=== PATIENT | male | born 1960 | race Caucasian/White ===

== ENCOUNTER 2016-05-23 13:44 | Emergency (ER) | payer SELFPAY | END 2016-05-23 15:42 | disposition home or self-care (01) | LOC: D.ER 13:44 | DX: H81.10 Benign paroxysmal vertigo, unspecified ear (principal); R11.10 Vomiting, unspecified; R53.1 Weakness; E86.0 Dehydration; F17.200 Nicotine dependence, unspecified, uncomplicated; K21.9 Gastro-esophageal reflux disease without esophagitis ==

== ENCOUNTER 2016-11-09 03:06 | Emergency (ER) | payer MEDICAID ==
[2016-11-09 04:09] LABS: BASOPHILS 0.2 % (0-2); HEMATOCRIT 42.4 % (42.0-54.0); HEMOGLOBIN 14.4 g/dL (13.5-17.5); IMMATURE GRANULOCYTES 0.2 % (0-5); LYMPHOCYTES 30.3 % (15-50); MCH 33.7 pg (26.0-34.0); MCV 99.3 fL (80.0-100.0); MEAN PLATELET VOLUME 8.9 fL (7.4-10.4); MONOCYTES 7.8 % (2-11); NEUTROPHILS 59.5 % (40-80); PLATELET COUNT 185 10x3/uL (130-400); RBC 4.27 10x6/uL (4.20-6.10); RDW 13.7 % (11.5-14.5); WBC 6.6 10x3/uL (4.8-10.8)
[2016-11-09 04:23] LABS: ALBUMIN 3.2 g/dL (3.4-5.0); ALKALINE PHOSPHATASE 53 U/L (46-116); ALT (SGPT) 17 U/L (10-68); CALC OSMOLALITY 285 mosm/kg (275-300); CALCIUM 8.4 mg/dL (8.5-10.1); CARBON DIOXIDE 27.1 mmol/L (21.0-32.0); CHLORIDE - SERUM 109 mmol/L (98-107); GLUCOSE 105 mg/dL (74-106); PROTEIN - SERUM 6.6 g/dL (6.4-8.2); SODIUM 142 mmol/L (136-145); UREA NITROGEN 20 mg/dL (7-18); eGFR NON AFRICAN AMERICAN 82 mL/min (90-120)
[2016-11-09 04:25] LABS: AMYLASE - SERUM 46 U/L (25-115); LIPASE 135 U/L (73-393); TROPONIN-I < 0.017 ng/mL (0.000-0.060)
== END 2016-11-09 06:04 | disposition home or self-care (01) ==
LOC: D.ER 03:06
PROVIDERS: Family Medicine
DX: R42 Dizziness and giddiness (principal); K21.9 Gastro-esophageal reflux disease without esophagitis; I45.10 Unspecified right bundle-branch block

== ENCOUNTER 2016-12-16 10:08 | Emergency (ER) | payer MEDICAID | END 2016-12-16 11:05 | disposition home or self-care (01) | LOC: D.ER 10:08 | DX: M79.1 Myalgia (principal); W19.XXXA Unspecified fall, initial encounter; Y93.89 Activity, other specified; Y92.029 Unspecified place in mobile home as the place of occurrence of the external cause; K21.9 Gastro-esophageal reflux disease without esophagitis ==

== ENCOUNTER 2018-09-11 02:38 | Emergency (ER) | payer MEDICAID ==
[~2018-09-11] VITALS: Ht 193 cm; Wt 87.3 kg
[2018-09-11 02:41] VITALS: Ht 193 cm; Wt 87.3 kg
[2018-09-11 02:54] LABS: BASOPHILS 0.3 % (0-2); EOSINOPHILS 2.8 % (0-7); HEMATOCRIT 44.2 % (42.0-54.0); HEMOGLOBIN 15.5 g/dL (13.5-17.5); IMMATURE GRANULOCYTES 0.1 % (0-5); LYMPHOCYTES 31.3 % (15-50); MCH 34.4 pg (26.0-34.0); MCHC 35.1 g/dL (31.0-37.0); MCV 98.2 fL (80.0-100.0); MEAN PLATELET VOLUME 8.8 fL (7.4-10.4); MONOCYTES 7.9 % (2-11); NEUTROPHILS 57.6 % (40-80); PLATELET COUNT 166 10x3/uL (130-400); RDW 13.6 % (11.5-14.5); WBC 7.2 10x3/uL (4.8-10.8)
[2018-09-11 03:03] LABS: APTT 28.8 SECONDS (22.8-39.4); INR 1.05 (0.85-1.17); PROTIME 13.2 SECONDS (11.6-15.0)
[2018-09-11 03:07] LABS: ALBUMIN 3.7 g/dL (3.4-5.0); ALKALINE PHOSPHATASE 55 U/L (46-116); ALT (SGPT) 17 U/L (10-68); BILIRUBIN - TOTAL 0.36 mg/dL (0.2-1.3); CALC OSMOLALITY 280 mosm/kg (275-300); CALCIUM 8.5 mg/dL (8.5-10.1); CHLORIDE - SERUM 104 mmol/L (98-107); CREATININE - SERUM 1.1 mg/dL (0.6-1.3); GLUCOSE 94 mg/dL (74-106); PROTEIN - SERUM 7.1 g/dL (6.4-8.2); SODIUM 139 mmol/L (136-145); UREA NITROGEN 22 mg/dL (7-18); eGFR NON AFRICAN AMERICAN 73 mL/min (90-120)
[2018-09-11 03:18] LABS: CKMB 0.9 U/L (0.0-3.6); CREATINE KINASE 85 UL (21-232); PRO BNP 26 pg/mL (0-125)
[2018-09-11 03:20] LABS: TROPONIN-I < 0.017 ng/mL (0.000-0.060)
[2018-09-11 04:44] VITALS: BP 132/75
== END 2018-09-11 04:44 | disposition home or self-care (01) ==
LOC: D.ER 02:38
PROVIDERS: Family Medicine
DX: E83.51 Hypocalcemia (principal); M79.605 Pain in left leg; M79.604 Pain in right leg

== ENCOUNTER 2018-12-29 07:08 | Emergency (ER) | payer SELFPAY ==
[~2018-12-29] VITALS: Ht 193 cm; Wt 84.5 kg
[2018-12-29 07:15] VITALS: Ht 193 cm; Wt 84.5 kg
[2018-12-29] MEDS ORDERED: VITAMIN E100 UNIT PO (07:20)
[2018-12-29] MEDS ORDERED: BAYER ASPIRIN325 MG PO (07:20)
[2018-12-29] MEDS ORDERED: MULTI-DAY VITAM1 TAB PO (07:20)
[2018-12-29] MEDS ORDERED: ASCORBIC ACID500 MG PO (07:20)
[2018-12-29] MEDS ORDERED: GUAIFEN-CODEINE10 ML PO (08:01)
[2018-12-29] MEDS ORDERED: FLUTICASONE PRO16 GM NASAL (08:01)
[2018-12-29] MEDS ORDERED: AUGMENTIN 875-11 TAB PO (08:01)
[2018-12-29 08:08] VITALS: BP 120/75
== END 2018-12-29 08:10 | disposition home or self-care (01) ==
LOC: D.ER 07:08
DX: J01.90 Acute sinusitis, unspecified (principal); R05 Cough; R50.9 Fever, unspecified; Z72.0 Tobacco use

== ENCOUNTER 2019-02-11 18:12 | Emergency (ER) | payer SELFPAY ==
[~2019-02-11] VITALS: Ht 193 cm; Wt 83.2 kg
[~2019-02-11 18:12] MED LIST: ASCORBIC ACID500 MG PO; AUGMENTIN 875-11 TAB PO; BAYER ASPIRIN325 MG PO; FLUTICASONE PRO16 GM NASAL; GUAIFEN-CODEINE10 ML PO; MULTI-DAY VITAM1 TAB PO; VITAMIN E100 UNIT PO
[2019-02-11 18:21] VITALS: Ht 193 cm; Wt 83.2 kg
[2019-02-11] MEDS ORDERED: CLEOCIN HCL300 MG PO (19:18)
[2019-02-11] MEDS ORDERED: KEFLEX500 MG PO (19:18)
[2019-02-11 19:38] VITALS: BP 136/84
== END 2019-02-11 19:38 | disposition home or self-care (01) ==
LOC: D.ER 18:12
DX: L02.11 Cutaneous abscess of neck (principal)

== ENCOUNTER 2019-07-24 19:37 | Emergency (ER) | payer SELFPAY ==
[~2019-07-24] VITALS: Ht 193 cm; Wt 85.0 kg
[~2019-07-24 19:37] MED LIST changes: +CLEOCIN HCL300 MG PO; +KEFLEX500 MG PO
[2019-07-24 19:43] VITALS: Ht 193 cm; Wt 85.0 kg
[2019-07-24] MEDS ORDERED: ZOFRAN ODT4 MG/UDTAB PO (19:49)
[2019-07-24 20:23] LABS: BASOPHILS 0.3 % (0-2); HEMATOCRIT 43.7 % (42.0-54.0); HEMOGLOBIN 15.1 g/dL (13.5-17.5); IMMATURE GRANULOCYTES 0.2 % (0-5); LYMPHOCYTES 32.4 % (15-50); MCH 34.1 pg (26.0-34.0); MCHC 34.6 g/dL (31.0-37.0); MCV 98.6 fL (80.0-100.0); MEAN PLATELET VOLUME 8.4 fL (7.4-10.4); MONOCYTES 7.7 % (2-11); NEUTROPHILS 57.4 % (40-80); PLATELET COUNT 191 10x3/uL (130-400); RBC 4.43 10x6/uL (4.20-6.10); RDW 13.6 % (11.5-14.5); WBC 6.6 10x3/uL (4.8-10.8)
[2019-07-24 20:31] LABS: CALC OSMOLALITY 281 mosm/kg (275-300); CARBON DIOXIDE 24.5 mmol/L (21.0-32.0); CHLORIDE - SERUM 105 mmol/L (98-107); CREATININE - SERUM 1.2 mg/dL (0.6-1.3); GLUCOSE 113 mg/dL (74-106); POTASSIUM - SERUM 3.8 mmol/L (3.5-5.1); SODIUM 139 mmol/L (136-145); UREA NITROGEN 22 mg/dL (7-18); eGFR NON AFRICAN AMERICAN 66 mL/min (90-120)
[2019-07-24 20:40] LABS: ALBUMIN 3.5 g/dL (3.4-5.0); ALKALINE PHOSPHATASE 58 U/L (30-120); ALT (SGPT) 23 U/L (10-68); LIPASE 120 U/L (73-393); PROTEIN - SERUM 7.1 g/dL (6.4-8.2)
[2019-07-24 20:41] LABS: TROPONIN-I < 0.017 ng/mL (0.000-0.060)
[2019-07-24 21:53] VITALS: BP 116/74
== END 2019-07-24 21:56 | disposition home or self-care (01) ==
LOC: D.ER 19:37
PROVIDERS: Family Medicine
DX: R11.2 Nausea with vomiting, unspecified (principal)

== ENCOUNTER 2019-10-03 05:06 | Emergency (ER) | payer SELFPAY ==
[~2019-10-03] VITALS: Ht 193 cm; Wt 81.8 kg
[~2019-10-03 05:06] MED LIST changes: +ZOFRAN ODT4 MG/UDTAB PO
[2019-10-03 05:10] VITALS: Ht 193 cm; Wt 81.8 kg
[2019-10-03 05:48] LABS: BASOPHILS 0.2 % (0-2); EOSINOPHILS 2.3 % (0-7); HEMATOCRIT 43.2 % (42.0-54.0); HEMOGLOBIN 14.8 g/dL (13.5-17.5); IMMATURE GRANULOCYTES 0.2 % (0-5); LYMPHOCYTES 34.2 % (15-50); MCHC 34.3 g/dL (31.0-37.0); MCV 99.3 fL (80.0-100.0); MEAN PLATELET VOLUME 8.3 fL (7.4-10.4); MONOCYTES 8.8 % (2-11); NEUTROPHILS 54.3 % (40-80); PLATELET COUNT 158 10x3/uL (130-400); RBC 4.35 10x6/uL (4.20-6.10); RDW 13.5 % (11.5-14.5); WBC 5.7 10x3/uL (4.8-10.8)
[2019-10-03 06:17] LABS: CALC OSMOLALITY 278 mosm/kg (275-300); CALCIUM 8.1 mg/dL (8.5-10.1); CARBON DIOXIDE 27.6 mmol/L (21.0-32.0); CHLORIDE - SERUM 104 mmol/L (98-107); GLUCOSE 92 mg/dL (74-106); POTASSIUM - SERUM 3.8 mmol/L (3.5-5.1); SODIUM 139 mmol/L (136-145); UREA NITROGEN 15 mg/dL (7-18); eGFR NON AFRICAN AMERICAN 81 mL/min (90-120)
[2019-10-03 06:30] LABS: ALBUMIN 3.4 g/dL (3.4-5.0); ALKALINE PHOSPHATASE 48 U/L (30-120); ALT (SGPT) 20 U/L (10-68); BILIRUBIN - TOTAL 0.41 mg/dL (0.2-1.3); C-REACTIVE PROTEIN 0.5 mg/dL (0.0-0.9); LIPASE 83 U/L (73-393); MAGNESIUM - SERUM 1.9 mg/dL (1.8-2.4); PRO BNP 50 pg/mL (0-125); PROTEIN - SERUM 6.8 g/dL (6.4-8.2); THYROID STIMULATING HORMONE 2.39 uIU/mL (0.36-3.74)
[2019-10-03 06:31] LABS: TROPONIN-I < 0.017 ng/mL (0.000-0.060)
[2019-10-03 07:00] LABS: BILIRUBIN NEGATIVE (NEGATIVE); GLUCOSE NEGATIVE (NEGATIVE); KETONE NEGATIVE (NEGATIVE); NITRITE NEGATIVE (NEGATIVE); UROBILINOGEN NORMAL (NORMAL)
[2019-10-03 08:30] VITALS: BP 115/76
== END 2019-10-03 08:31 | disposition home or self-care (01) ==
LOC: D.ER 05:06
PROVIDERS: Family Medicine
DX: R42 Dizziness and giddiness (principal)

== ENCOUNTER 2019-10-23 23:28 | Emergency (ER) | payer MEDICAID ==
[~2019-10-23] VITALS: Ht 193 cm; Wt 84.5 kg
[2019-10-23 23:31] VITALS: Ht 193 cm; Wt 84.5 kg
[2019-10-24] MEDS ORDERED: OMEPRAZOLE40 MG PO (00:08)
[2019-10-24 00:25] VITALS: BP 107/75
== END 2019-10-24 00:25 | disposition home or self-care (01) ==
LOC: D.ER 23:28
DX: K21.9 Gastro-esophageal reflux disease without esophagitis (principal)

== ENCOUNTER 2020-06-20 02:10 | Emergency (ER) | payer BC ==
[~2020-06-20] VITALS: Ht 193 cm; Wt 88.6 kg
[~2020-06-20 02:10] MED LIST changes: +MECLIZINE HCL25 MG PO; +OMEPRAZOLE40 MG PO
[2020-06-20 02:20] VITALS: Ht 193 cm; Wt 88.6 kg
[2020-06-20 02:40] LABS: BASOPHILS 0.3 % (0-2); EOSINOPHILS 1.7 % (0-7); HEMATOCRIT 42.8 % (42.0-54.0); HEMOGLOBIN 14.6 g/dL (13.5-17.5); IMMATURE GRANULOCYTES 0.2 % (0-5); LYMPHOCYTE ABS# 1.99 10x3/uL (1.32-3.57); LYMPHOCYTES 30.6 % (15-50); MCH 33.7 pg (26.0-34.0); MCHC 34.1 g/dL (31.0-37.0); MCV 98.8 fL (80.0-100.0); MEAN PLATELET VOLUME 8.9 fL (7.4-10.4); MONOCYTES 9.1 % (2-11); NEUTROPHIL ABS# 3.79 10x3/uL (1.78-5.38); NEUTROPHILS 58.1 % (40-80); PLATELET COUNT 200 10x3/uL (130-400); RBC 4.33 10x6/uL (4.20-6.10); RDW 13.4 % (11.5-14.5); WBC 6.5 10x3/uL (4.8-10.8)
[2020-06-20 02:47] LABS: CALC OSMOLALITY 281 mosm/kg (275-300); CARBON DIOXIDE 25.5 mmol/L (21.0-32.0); CHLORIDE - SERUM 105 mmol/L (98-107); CREATININE - SERUM 0.9 mg/dL (0.6-1.3); GLUCOSE 98 mg/dL (74-106); POTASSIUM - SERUM 3.7 mmol/L (3.5-5.1); SODIUM 139 mmol/L (136-145); UREA NITROGEN 23 mg/dL (7-18); eGFR NON AFRICAN AMERICAN > 90 mL/min (90-120)
[2020-06-20 02:54] LABS: ALBUMIN 3.4 g/dL (3.4-5.0); ALKALINE PHOSPHATASE 58 U/L (30-120); ALT (SGPT) 23 U/L (10-68); BILIRUBIN - TOTAL 0.29 mg/dL (0.2-1.3)
[2020-06-20 03:05] LABS: BILIRUBIN NEGATIVE (NEGATIVE); KETONE NEGATIVE (NEGATIVE); NITRITE NEGATIVE (NEGATIVE); UROBILINOGEN NORMAL mg/dL (< 2)
[2020-06-20 03:39] VITALS: BP 111/70
== END 2020-06-20 03:42 | disposition home or self-care (01) ==
LOC: D.ER 02:10
PROVIDERS: Family Medicine
DX: R11.0 Nausea (principal)

== ENCOUNTER 2020-06-27 10:24 | Emergency (ER) | payer BC ==
[~2020-06-27] VITALS: Ht 193 cm; Wt 88.2 kg
[2020-06-27 10:36] VITALS: BP 126/81; Ht 193 cm; Wt 88.2 kg
== END 2020-06-27 11:23 | disposition home or self-care (01) ==
LOC: D.ER 10:24
DX: R42 Dizziness and giddiness (principal); R11.0 Nausea